=== PATIENT | male | born 2000 | race Caucasian/White ===

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

== ENCOUNTER → 2022-11-18 | Outpatient (REF) | payer OTHER ==
[2022-11-18 21:36] LABS: GC DNA AMPLIFICATION NEGATIVE (NEGATIVE)
== END ==
LOC: M WUC 19:51
PROVIDERS: ATTEND Physician Assistant
DX: Z11.3 Encounter for screening for infections with a predominantly sexual mode of transmission (principal)